=== PATIENT | male | born 1970 | race Caucasian/White ===

== ENCOUNTER 2016-12-19 16:46 | Emergency (ER) | payer OTHER ==
[~2016-12-19] VITALS: Ht 175.3 cm; Wt 109.1 kg
[2016-12-19 17:01] VITALS: BP 129/88; PULSE 85; RESP 16; O2SAT 98
--- NOTE | 2016-12-19 17:07 | ED.REPORT ---
HPI-Extremity Problem Lower Date of Service Dec 19, 2016 ED Provider: History of Present Illness: swelling on right leg, sent by ortho to us . positive for blood clot. leg has been swelling for 3 to 4 days. right knee issues since end of November, mobility issues on right knee, using crutches for the last couple of weeks. primary care is myra. normally healthy. no hx of clots previously. no pain at present. has a work note but will need additional. work for [employer] in [place] Nursing Notes Stated Complaint: DEEP VEIN THROMBOSIS Chief Complaint: Extremity Trauma Nursing Notes Reviewed: Yes Allergies: Coded Allergies: shellfish derived (Verified Allergy, Intermediate, painfull joints, nausea , 12/19/16) General Time Seen by MD: 17:06 Chief Complaint Leg injury right Hx Obtained From: Patient Onset Occurred: 3 days ago Past Medical History Past Medical History Denies: Asthma, Hypertension Past Surgical History denies Smoking History Never Smoker Social History Alcohol Use: Denies alcohol use Drug Use: Denies drug use Other Social History: Occupation lives with , 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 Ambulatory Status Independent Review of Systems Basic Review of Systems Eyes: Vision NL, No discharge : No dysuria, No frequency Psychiatric: Normal thought content Physical Exam Initial Vital Signs Vital Signs (First) Date Time Temp Pulse Resp B/P Pulse Ox O2 Delivery O2 Flow Rate FiO2 12/19/16 17:01 36.7 85 16 129/88 98 Room Air Initial VS: Reviewed, Vital signs normal General/Constitutional: Well-developed, Well-nourished Head / Eyes: Atraumatic, Normocephalic, PERRL ENT: Mucous membranes moist, Conjunctiva normal, No scleral icterus Neck: Supple, Non-tender, Full range of motion Respiratory: Breath sounds normal, Clear to auscultation, No respiratory distress Cardiovascular: Regular rate & rhythm, Heart sounds normal, Intact distal pulses Abdomen / GI: Soft, Non-tender, No guarding, No rebound, No distention Back: No CVA tenderness Lymphatic: No lymphadenopathy Upper Extremities: Vascular intact, Neuro intact, No swelling, No tenderness Skin: Warm, Dry, No cyanosis Neurologic: Alert, Oriented, Nonfocal Psychiatric: Mood/affect normal, Behavior normal, Normal thought content Right Leg / Calf: Positive: R calf > L calf, Swelling present... (Moderate) Right Ankle: Positive: Swelling present... (Mild) General/Constitutional: Awake, Alert, No acute distress Respiratory / Chest: Atraumatic, Breath sounds NL, Breath sounds = bilat, No respiratory distress Cardiovascular: Heart rate NL, Regular rhythm, Heart sounds NL Interpretation & Diagnostics Lab Results Interpretation Result Diagram: 12/19/16 1749 12/19/16 1749 Test 12/19/16 17:49 White Blood Count 6.7th/mm3 (3.8-10.1) Red Blood Count 4.94mil/mm3 (4.40-5.80) Hemoglobin 14.2g/dL (13.8-17.2) Hematocrit 42.4% (41.0-50.0) Mean Corpuscular Volume 85.8fL (81-100) Mean Corpuscular Hemoglobin 28.7pg (27.0-35.0) Mean Corpuscular Hemoglobin Concent 33.5% (32.0-37.0) Red Cell Distribution Width 12.9% (12.3-15.4) Platelet Count 240bil/L (150-400) Neutrophils (%) (Auto) 63.5% (40-74) Lymphocytes (%) (Auto) 24.8% (14-46) Monocytes (%) (Auto) 7.4% (4-12) Eosinophils (%) (Auto) 3.6% (0-5) Basophils (%) (Auto) 0.6% (0-3) Prothrombin Time 10.7sec (8.1-12.5) Prothromb Time International Ratio 1.00ratio Sodium Level 139mEq/L (134-144) Potassium Level 4.0mEq/L (3.5-5.2) Chloride Level 101mEq/L (97-108) Carbon Dioxide Level 23mmol/L (18-29) Blood Urea Nitrogen 19mg/dL (6-24) Creatinine 0.91mg/dL (0.76-1.27) Estimat Glomerular Filtration Rate 95mL/min (>59) Glucose Level 83mg/dL (60-99) Calcium Level 9.1mg/dL (8.5-10.1) Total Bilirubin 0.2mg/dL (0.0-1.2) Aspartate Amino Transf (AST/SGOT) 18U/L (0-50) Alanine Aminotransferase (ALT/SGPT) 24U/L (0-44) Alkaline Phosphatase 67U/L (25-150) Total Protein 7.1g/dL (6.4-8.4) Albumin 4.0g/dL (3.4-5.0) Hold Mae Top Tube Received (Received) US Soft Tissue/Musculoskeletal ROCEDURE: US VEINOUS LEG DUPLEX UNILATERAL, RIGHT INDICATIONS: RIGHT CALF PAIN / RULE OUT DVT TECHNIQUE: Real-time imaging, as well as color and pulse Doppler interrogation, were performed of the lower extremity deep veins from the inguinal ligament to the popliteal fossa. COMPARISON: None. FINDINGS: The right common femoral, deep femoral, femoral and popliteal veins are patent. There is acute occlusive deep venous thrombus in the right peroneal, posterior tibial, and gastroc veins. IMPRESSION: Acute deep venous thrombus in the distal right lower extremity. Results were discussed with Dr. Sarkar by the funds transfer clerk at 16:34 on 12/19/2016. Dictated by: Jerry Lucas M.D. on 12/19/2016 at 17:05 Approved by: Jerry Lucas M.D. on 12/19/2016 at 17:06 Re-Eval/Medical Decision Med Decision/Clinical Course 46 year old male presents to the ED after US showed a positive DVT in the right lower extremity. Patient has been having mobility issues for the last 2 to 3 weeks. Has been using crutches to ambulate. Saw Dr. Sarkar earlier for possible surgery. No sign of any fracture or abscess formation Discharge & Departure Impression: Primary Impression: Deep vein blood clot of right lower extremity Chronicity: acute Disposition: Home Patient Instructions: Deep Vein Thrombosis Prevention (ED), Deep Venous Thrombosis (ED) Additional Instructions: The ultrasound does show a clot in the lower leg. Start eliquis 10 mg in the am and pm for 7 days, then do 5 mg in the am and pm for 3 weeks. Please follow with Emily Fletcher for ongoing monitoring. Make an appointment with ortho for discussion of when surgery might happen for the knee. Note for work provided. Referrals: Keith Viera DO (PCP) Emily Fletcher PA-C EDSupervising Provider for [facility]: Pablo Molina DO copies to: Emily Fletcher PA-C, Sue ARNP Dec 19, 2016 17:07
[2016-12-19 17:54] LABS: BASOPHILS % (AUTO) 0.6 % (0-3); EOSINOPHILS % (AUTO) 3.6 % (0-5); MONOCYTES % (AUTO) 7.4 % (4-12); Mean Corpuscular Hemoglobin 28.7 pg (27.0-35.0); Mean Corpuscular Volume 85.8 fL (81-100); NEUTROPHILS % (AUTO) 63.5 % (40-74); Platelet Count 240 bil/L (150-400)
[2016-12-19 19:23] VITALS: BP 134/88; PULSE 81; RESP 16; O2SAT 98
== END 2016-12-19 19:24 | disposition home or self-care (01) ==
LOC: SED 16:46
DX: I82.4Z1 Acute embolism and thrombosis of unspecified deep veins of right distal lower extremity (principal); Z91.013 Allergy to seafood